=== PATIENT | female | born 1980 | race Caucasian/White ===

== ENCOUNTER → 2024-09-01 | Outpatient (CLI) | payer OTHER, SELFPAY ==
--- NOTE | 2024-09-01 14:30 | XR_ITS ---
Examination: Screening digital mammography, bilateral Computer aided detection 3-D breast Tomosynthesis, bilateral Date and time of exam: September 01, 2024 1418 hours Comparison April 07, 2019 Indication: Screening Technique: Nonmagnified MLO, CC views of the breasts to been obtained, reconstructed from 3-D Tomosynthesis images. R2 computer aided detection program utilized for evaluation of suspicious masses and/or abnormal calcifications. 3-D Tomosynthesis images obtained. Findings: The breasts are heterogeneously dense, which may obscure small masses 16mm round nodule 12:00 position left breast anterior depth Impression: BI-RADS Category 0: Incomplete: Need additional evaluation Recommend follow-up spot tomographic views of 16mm round nodule 12:00 position left breast as well as bilateral breast sonography to complete the workup
== END | disposition home or self-care (01) ==
LOC: CDIM 14:05
PROVIDERS: Referring Provider Registered Nurse; Visit Provider Registered Nurse
DX: Z12.31 Encounter for screening mammogram for malignant neoplasm of breast (principal); N63.25 Unspecified lump in the left breast, overlapping quadrants
CPT/HCPCS: 77063; 77067

== ENCOUNTER 2024-09-28 08:59 | Outpatient (AMB) | payer OTHER, SELFPAY ==
--- NOTE | 2024-09-28 09:16 | GYNCLNT_ITS ---
Vital Signs 09/28/24 09:17 Height 1.55 m Height Method Stated Weight 63.106 kg Weight Measurement Method Standing Scale BMI 26.2 BP 137/87 H Blood Pressure Source Automatic Cuff Blood Pressure Location Right Upper Arm Position Sitting Respiration 17 Pulse 78 Pulse Source Monitor Temp 98.2 F Temp Source Temporal Artery Scan Pulse Oximetry (%) 99 Oxygen Delivery Method Room Air Allergies/Home Meds Allergies & Medications Allergies No Known Allergies Allergy (Verified 09/28/24 09:19) Medication Reconciliation No Known Home Medications 09/28/24 [History Confirmed 09/28/24] Intake Visit Data Collection New Patient or Established: New Patient (never been to [facility]) 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 Dr. Gomez in [place]. Patient has ovaries and placed. Done for prolapse. Other Relevant History: History of vaginal delivery x 3 in the past No significant past medical history Questionnaires Covid-19 Vaccine Questionnaire Has patient been vacinated for Covid-19 Have you been vacinated for Covid-19: No PHQ-9 PHQ-2 Over the last 2 weeks, how often have you been bothered by any of the following problems? 1. Little interest or pleasure in doing things: not at all 2. Feeling down, depressed, or hopeless: not at all Total score: 0 PHQ-9 3. Trouble falling or staying asleep, or sleeping too much: Not at all 4. Feeling tired or having little energy: Not at all 5. Poor appetite or overeating: Not at all 6. Feeling bad about yourself - or that you are a failure or have let yourself or your family down: Not at all 7. Trouble concentrating on things, such as reading the newspaper or watching television: Not at all 8. Moving or speaking so slowly that other people could have noticed? - Or the opposite - being so fidgety or restless that you have been moving around a lot more than usual: not at all 9. Thoughts that you would be better off or of hurting yourself in some way: Not at all Total score: 0 If you checked off any problems, how difficult have these problems made it for you to do your work, take care of things at home, or get along with other people?: not difficult at all Source: Developed by Drs. Gurpreet Dang, Maira Toledo, Dustin Borjas and colleagues, with an educational bjorn from [employer] (formerly [employer]). 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 3 boys. Tobacco History Smoking Status: Never smoker Domestic Abuse History Do You Feel Safe at Home: Yes History of Present Illness HPI Narrative The patient is a 44-year-old -0-1-3 history of vaginal delivery x 3 in the past. She used to see me in [place]. She presents for an annual exam. She had a history of a hysterectomy in [address] Gomez for prolapse. She also had an A and P repair and a sling at the same time. The patient stated this was a laparoscopic supracervical hysterectomy. I do not have her medical records in front of me. She did not release them. She did fill out a new gynecology intake form. She has a history of vaginal delivery x 3 in the past her son Pantera is 11 turning 12 soon her son Woody is 10 and her son Pillo is 8. All are doing well. She also had [address] the past. Dr. Jennifer Boyer who is her primary care. Her only complaint today is weight gain. The patient is actually very active doing weightlifting and Pilates 5 days a week. She states her clothes fit well but she is still gaining weight. Her primary care checked labs recently and she states her thyroid is normal. Her family history is significant for skin cancer in her mother and a sister and prostate cancer in her father. Patient has no gynecological complaints today specifically no hot flashes, no night sweats, no vaginal dryness and no urinary complaints. She is just here for a Pap and annual. She does have a cervix so she does need a Pap smear. Review of Systems Review of Systems Narrative Review of Systems: Patient reports gaining weight but her clothes still fit. She wonders if this is muscle weight gain. No hot flashes. No night sweats. No incontinence. No vaginal dryness. No pain during intercourse. No heavy bleeding. Occasionally she will have some spotting as she does still have a cervix. Exam General Limitations: no limitations General Appearance: alert, in no apparent distress, comfortable, cooperative, healthy appearing and well groomed Neck Neck exam: Present normal inspection, full ROM and trachea midline Chest Chest inspection: Present normal inspection and symmetric chest wall rise Exp Chest Breast: bilateral: other (Normal breast exam bilaterally) Resp Respiratory exam: Present normal lung sounds bilaterally Card Cardiovascular exam: Present regular rate, normal rhythm and normal heart sounds Abdominal Abdominal exam: Present soft and normal bowel sounds External exam: Present normal external exam Speculum exam: Present normal speculum exam (Cervix appears grossly normal) Bimanual exam: Present normal bimanual exam (Uterus surgically absent. Patient has 2-3+ rectocele. No significant cystocele. No mesh protrusion from her sling. Adnexa are not palpable) Extremities Extremities exam: Present normal inspection and full ROM Psych Psychiatric exam: Present normal affect and normal mood Skin Skin exam: Present warm, dry, intact and normal color Office Procedures OB Clinic LOC & Office Proc's Nursing/Assessment Patient Status: Initial/New Patient OB Clinic Nursing Assessment: Medication Reconciliation, Update PMH in EMR and Vital Signs OB Clinic Coordination of Care: Complex Care and Chronic Disease 1-5, Consent,records obtained, informed consent, Education Simp Pt/Fam, Lab and Imaging orders, Results/Orders obtained and Staff clarify orders Miscellaneous Interventions: Breast Exam and Pelvic/Pap Smear Set up New Patient Charge New Patient Point Assignment: 1154 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 Patient just had a mammogram done today at [facility]. Dr. Kala Craft who is her primary care and checking all lab work on her. She will follow-up yearly or as needed. 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
[2024-09-28 09:17] VITALS: BP 137/87; PULSE 78; RESP 17; TEMP 36.8; O2SAT 99; BMI 26.2
== END 2024-09-28 10:33 | disposition home or self-care (01) ==
PROVIDERS: PCP Family Medicine; Referring Provider Family Medicine; Supervising Provider Obstetrics & Gynecology; Visit Provider Obstetrics & Gynecology
DX: Z01.419 Encounter for gynecological examination (general) (routine) without abnormal findings (principal); Z11.51 Encounter for screening for human papillomavirus (HPV)
CPT/HCPCS: 99204; Q0091; G0463

== ENCOUNTER → 2024-09-28 | Outpatient (CLI) | payer OTHER, SELFPAY ==
--- NOTE | 2024-09-28 08:00 | XR_ITS ---
Examination: Breast ultrasound complete, bilateral Date and time of exam: September 28, 2024 0833 hours INDICATIONS: Mammogram September 01, 2024 16 mm round nodule left breast Technique: Real-time grayscale ultrasonographic imaging bilateral breasts, including all 4 quadrants as well as nipple retroareolar and axillary regions. Findings: Sonographic images right breast Retroareolar cyst 4 x 4 millimeter No solid nodules Sonographic images left breast No cystic or solid masses Bilateral dilated breast ducts IMPRESSION: BI-RADS Category 2: Benign findings
--- NOTE | 2024-09-28 09:00 | XR_ITS ---
Examination: Diagnostic digital mammography, unilateral, left Computer aided detection 3-D breast Tomosynthesis, unilateral Date and time of exam: September 28, 2024 0851 hours INDICATIONS: Mammogram September 01, 2024 16 mm round nodule 12:00 position left breast Technique: Nonmagnified MLO, CC views of the left breast have been obtained, reconstructed from 3-D Tomosynthesis images. R2 computer aided detection program utilized for evaluation of suspicious masses and/or abnormal calcifications. 3-D Tomosynthesis images obtained. Findings: The breast is heterogeneously dense, which may obscure small masses Focal asymmetry round nodule 12:00 position left breast remains Impression: BI-RADS category 3: Probably benign findings Recommend 1 additional 6 month left mammogram follow-up
== END | disposition home or self-care (01) ==
PROVIDERS: PCP Registered Nurse; Referring Provider Registered Nurse; Visit Provider Registered Nurse
DX: R92.332 Mammographic heterogeneous density, left breast (principal)
CPT/HCPCS: 76641; 77061; 77065; G0279